=== PATIENT | male | born 1980 ===

== ENCOUNTER 2020-05-24 08:35 | Day surgery (SDC) | payer OTHER ==
[~2020-05-24 08:35] MED LIST: PROPOFOL INJ 200 MG/20 ML VIAL IV ONE
[2020-05-24 13:04] VITALS: BP 120/69
--- NOTE | 2020-05-24 14:27 | Operative Report ---
Operative Report DATE OF SURGERY: 05/24/20 Operative Report: The risks benefits and alternatives of the procedure explained to the patient in detail and informed consent is obtained.A GIF Olympus video scope was inserted into the patient's mouth and hypopharynx, the esophagus is identified intubated and insufflated ,the scope was then advanced through the esophagus stomach and duodenum ,retroflexion maneuver is done, the esophagus stomach and first and second portions of the duodenum examined PREOPERATIVE DIAGNOSIS: Epigastric pain, gastroesophageal reflux disease POSTOPERATIVE DIAGNOSIS: Gastritis status post biopsy. Duodenitis OPERATION: EGD with biopsy SURGEON: ELLIS MORA ANESTHESIA: LMAC TISSUE REMOVED OR ALTERED: As noted above. COMPLICATIONS: None. ESTIMATED BLOOD LOSS: None. INTRAOPERATIVE FINDINGS: As noted above. PROCEDURE: Patient tolerated the procedure well. No immediate postprocedure complications are noted. Patient is discharged in good condition. Discharge date 05/24/2020. Discharge diet: Regular. Discharge activity: Regular. 2 to 3-week follow-up to discuss findings. Patient is instructed to call the office or proceed to the emergency room should there be any further problems or questions. Wait on the pathology.
== END 2020-05-24 12:58 ==
LOC: END 08:35
PROVIDERS: ATTEND Internal Medicine Gastroenterology
DX: K29.50 Unspecified chronic gastritis without bleeding (principal); K29.80 Duodenitis without bleeding; K44.9 Diaphragmatic hernia without obstruction or gangrene; E11.9 Type 2 diabetes mellitus without complications; Z79.84 Long term (current) use of oral hypoglycemic drugs; Z20.828 Contact with and (suspected) exposure to other viral communicable diseases; F17.210 Nicotine dependence, cigarettes, uncomplicated; K21.9 Gastro-esophageal reflux disease without esophagitis; Z79.899 Other long term (current) drug therapy
CPT/HCPCS: 43239; 82962; 88305 ×2; 00731; J2704; 731